=== PATIENT | male | born 1965 | race Caucasian/White ===

== ENCOUNTER 2018-04-02 21:22 | Emergency (ER) | payer OTHER ==
[2018-04-02] MEDS ORDERED: SODIUM CHLORIDE 0.9% 2,000 ML IV ONE (22:45)
--- NOTE | 2018-04-03 01:20 | ED ---
General Adult HPI - General Chief complaint: Recheck/Abnormal Lab/Rx Stated complaint: low blood pressure Time Seen by Provider: 04/02/18 22:12 Source: patient Mode of arrival: ambulatory Limitations: no limitations - History of Present Illness Initial comments: Patient is a 52-year-old male who presents with the chief complaint hypotension. Patient states that he is getting over a viral illness which she was diagnosed with last week. He states that at the time of evaluation last week he was hypotensive and presents today for the same. He states that he does not have any symptoms. He states he came in because checking his blood pressure at home he states it was low. On arrival he is normotensive without symptoms. - Related Data Home Medications Medication Instructions Recorded Confirmed Ascorbic Acid [Vitamin C] 500 mg PO DAILY 04/02/18 04/02/18 Aspirin EC [Ecotrin] 325 mg PO DAILY 04/02/18 04/02/18 Cholecalciferol [Vitamin D3] 1,000 unit PO DAILY 04/02/18 04/02/18 Omeprazole 20 mg PO DAILY 04/02/18 04/02/18 Vitamin E 100 unit PO DAILY 04/02/18 04/02/18 guaiFENesin [Mucinex] 600 mg PO DAILY 04/02/18 04/02/18 Allergies Allergy/AdvReac Type Severity Reaction Status Date / Time No Known Allergies Allergy Verified 04/02/18 22:02 Review of Systems ROS Statement: Those systems with pertinent positive or pertinent negative responses have been documented in the HPI. ROS Other: All systems not noted in ROS Statement are negative. Past Medical History Past Medical History: No Reported History Additional Past Medical History / Comment(s): kidney stones. glaucoma. spina bifida (2017). History of Any Multi-Drug Resistant Organisms: None Reported Past Surgical History: Hernia Repair, Orthopedic Surgery Additional Past Surgical History / Comment(s): valve replacement. ORIF right knee. kidney stones. Past Psychological History: No Psychological Hx Reported Smoking Status: Current every day smoker Past Alcohol Use History: None Reported Past Drug Use History: None Reported General Exam Limitations: no limitations General appearance: alert, in no apparent distress Head exam: Present: atraumatic, normocephalic, normal inspection Eye exam: Present: normal appearance, PERRL, EOMI. Absent: scleral icterus, conjunctival injection, periorbital swelling ENT exam: Present: normal exam, mucous membranes moist Neck exam: Present: normal inspection. Absent: tenderness, meningismus, lymphadenopathy Respiratory exam: Present: normal lung sounds bilaterally. Absent: respiratory distress, wheezes, rales, rhonchi, stridor Cardiovascular Exam: Present: regular rate, normal rhythm, normal heart sounds. Absent: systolic murmur, diastolic murmur, rubs, gallop, clicks GI/Abdominal exam: Present: soft, normal bowel sounds. Absent: distended, tenderness, guarding, rebound, rigid Rectal exam: Present: deferred Extremities exam: Present: normal inspection, full ROM, normal capillary refill. Absent: tenderness, pedal edema, joint swelling, calf tenderness Back exam: Present: normal inspection Neurological exam: Present: alert, oriented X3, CN II-XII intact Psychiatric exam: Present: normal affect, normal mood Skin exam: Present: warm, dry, intact, normal color. Absent: rash Course Vital Signs 04/02/18 04/02/18 04/02/18 21:43 22:08 22:10 Temperature 98.4 F Pulse Rate 97 87 Respiratory 16 20 18 Rate Blood Pressure 108/76 133/79 O2 Sat by Pulse 95 96 Oximetry Medical Decision Making - Medical Decision Making Patient presents with a chief complaint of hypotension. On initial evaluation, vitals are stable, patient is in no acute distress. He denies any symptomatology currently. Patient requesting IV hydration. He was given 2 L of IV fluid. Reevaluation, patient is stable for discharge. He was instructed to follow up with primary care in 1-2 days, return to the ED if symptoms worsen or change. Disposition Clinical Impression: Dehydration Disposition: HOME SELF-CARE Condition: Good Is patient prescribed a controlled substance at d/c from ED?: No Referrals: None,Stated [Primary Care Provider] - 1-2 days Luiz Dinero MD [STAFF PHYSICIAN] - 1-2 days
[2018-04-03 01:29] VITALS: BP 112/82; PULSE 67; RESP 19; TEMP 97.9
== END 2018-04-03 01:25 | disposition home or self-care (01) ==
LOC: EC 21:22
DX: E86.0 Dehydration (principal); F17.200 Nicotine dependence, unspecified, uncomplicated; Z79.82 Long term (current) use of aspirin; Z79.899 Other long term (current) drug therapy; Z95.2 Presence of prosthetic heart valve
CPT/HCPCS: 96360; 96361; 99284

== ENCOUNTER 2018-07-05 08:44 | Day surgery (SDC) | payer OTHER ==
[2018-07-02 10:32] VITALS: BMI 22.3
[~2018-07-05 08:44] MED LIST: LACTATED RINGERS 1,000 ML IV SCH; LIDOCAINE 1% 20 ML VIAL (10MG/ML) FOR IV START INTRADERMA PRN
[2018-07-05 09:08] VITALS: RESP 16; TEMP 98.4
[2018-07-05] MEDS ORDERED: LACTATED RINGERS 1,000 ML IV ONE (09:13)
[2018-07-05] MEDS ORDERED: PROPOFOL 10 MG/ML 20 ML VIAL IV ONE (09:22)
[2018-07-05] MEDS ORDERED: LIDOCAINE 1% INJ 10MG/ML (20 ML MDV) ONE (09:22)
--- NOTE | 2018-07-05 10:04 | P.PCN ---
Date of Procedure: 07/05/18 Procedure(s) Performed: Procedures: 1. Esophagogastroduodenoscopy and biopsy and esophageal dilation of a duodenal stricture using the Microvasive pyloric channel dilator size 10-12 mm. 2. Aborted colonoscopy because of extremely poor preparation. Preoperative diagnosis: Reflux symptoms and weight loss and change in bowel habits. Postoperative diagnosis : 1. Small hiatal hernia with no obvious esophagitis or complicated reflux disease. 2. Gastritis and post bulbar stricture with partial obstruction to the gastric outlet. 3. S/P dilation of postbulbar duodenal stricture using the Microvasive ezvlnya-pyh-avrlu balloon dilators size 10-12 mm. 4. Biopsies obtained from the antrum. 5. Colonoscopy aborted because of extremely poor preparation. Preparation: HalfLytely prep. Sedation: Was provided by anesthesia. Brief clinical history: The patient is a 53-year-old male who is scheduled for this evaluation because of reflux symptoms and post prandial discomfort, weight loss and change in bowel habits. The patient has lost around 12 pounds over the last 3 months. No prior upper endoscopy or colonoscopy. Procedure: With the patient on his left lateral decubitus position and after informed consent and adequate sedation, I passed the Olympus-GIF H 190L video upper endoscope through the cricopharyngeus down the esophagus. GE junction was around 36 cm from the incisors and there was a small sliding hiatal hernia but no obvious esophagitis or complicated reflux disease. The endoscope was then passed into the stomach which was insufflated with air and inspected in detail including the retroflex view in the cardia. There was mottling and erythema in the antrum consistent with antral gastritis but no ulcers. Pyloric channel did not show any ulcers. Duodenal bulb showed retained food and pills and there was duodenal stricture in the post bulbar area that would not allow the advancement of the endoscope. I, therefore, proceeded to dilate the stricture using the ulranqb-fqv-qzgfo Microvasive pyloric channel balloon dilators size 10-12 mm. It was inflated in a stepwise fashion up to 12 mm at which level I was able to pass the endoscope through the post bulbar area to the descending duodenum. The stricture appeared benign and there was no obvious abnormalities. I obtained biopsies from the antrum then the endoscope was withdrawn and I proceeded to perform the colonoscopy. Perianal area did not show any fissures or fistulas. There were no masses felt on digital rectal examination. The Olympus CFH 190L video colonoscope was then inserted in the rectum in the usual fashion, unfortunately, the preparation was extremely poor and I decided to abort the colonoscopy knowing that the patient would have opportunities to have reattempt at this in the future, perhaps part of a repeat upper endoscopy to reinspect his duodenum and possibly redilate his stricture. The patient tolerated the procedure well. Plan: The patient was reassured. Will keep on clear liquids today. I will see him in follow-up in the office and further plans will be made accordingly.
[2018-07-05 10:31] VITALS: BP 121/85; PULSE 86
== END 2018-07-05 10:51 | disposition home or self-care (01) ==
LOC: ORWHC2ENDO 08:44
DX: R19.4 Change in bowel habit (principal); K44.9 Diaphragmatic hernia without obstruction or gangrene; K31.5 Obstruction of duodenum; R63.4 Abnormal weight loss; Z68.22 Body mass index [BMI] 22.0-22.9, adult; K29.50 Unspecified chronic gastritis without bleeding; K21.9 Gastro-esophageal reflux disease without esophagitis; J44.9 Chronic obstructive pulmonary disease, unspecified; Z86.79 Personal history of other diseases of the circulatory system; Z87.442 Personal history of urinary calculi; Z79.82 Long term (current) use of aspirin; Z79.899 Other long term (current) drug therapy
CPT/HCPCS: 88305; 43239; 43245; 45330; J2001; J2704; C1727

== ENCOUNTER 2020-09-28 09:02 | Day surgery (SDC) | payer OTHER ==
[2020-09-26 16:19] VITALS: BMI 20.7
[~2020-09-28 09:02] MED LIST changes: +ALPRAZolam 0.25 MG TAB PO PRN; +ALPRAZolam 0.5 MG TAB PO PRN; +ASPIRIN 325 MG TAB PO STA; +ATORVASTATIN 80 MG TAB PO STA; -LACTATED RINGERS 1,000 ML IV SCH; -LIDOCAINE 1% 20 ML VIAL (10MG/ML) FOR IV START INTRADERMA PRN; +NITROGLYCERIN SL TABS 0.4 MG TAB SUBLINGUAL PRN; +SODIUM CHLORIDE 0.9% 1,000 ML in EMPTY BAG 1 BAG IV ONE
[2020-09-28 09:28] VITALS: RESP 18
[2020-09-28] MEDS ORDERED: fentaNYL (PF) 50 MCG/ML 2 ML AMP ONE (12:14)
[2020-09-28] MEDS: BENZOCAINE SPRAY 1 CAN MUCOUS MEM ONE ×2 (12:25→12:32)
[2020-09-28] MEDS ORDERED: IV FLUID CONTINUATION 1,000 ML IV ONE (12:25)
[2020-09-28] MEDS: fentaNYL (PF) 50 MCG/ML 2 ML AMP IVP ONE ×3 (12:28→12:34)
[2020-09-28] MEDS ORDERED: MIDAZOLAM 2 MG/2 ML VIAL IVP ONE (12:28)
[2020-09-28] MEDS: MIDAZOLAM 2 MG/2 ML VIAL IVP ONE ×2 (12:32→12:34)
[2020-09-28] MEDS ORDERED: HEPARIN SODIUM 1,000 UN/ML (10ML VL) ONE (12:37)
[2020-09-28] MEDS ORDERED: LIDOCAINE 1% INJ 10MG/ML (20 ML MDV) ONE (12:37)
[2020-09-28] MEDS ORDERED: VERAPAMIL 2.5 MG/ML 2 ML AMP ONE (12:37)
[2020-09-28] MEDS: LIDOCAINE 1% INJ 10MG/ML (20 ML MDV) SQ ONE ×3 (13:16→13:30)
[2020-09-28] MEDS ORDERED: VERAPAMIL SYRINGE (5 MG/10 ML) INTRAARTER ONE (13:21)
[2020-09-28 13:59] LABS: O2 Sat Blood Gas 92.2 %
[2020-09-28] MEDS ORDERED: IOPAMIDOL-370 125ML BTL INJ ONE (14:00)
[2020-09-28 14:14] LABS: O2 Sat Blood Gas 68.2 %
[2020-09-28 14:17] LABS: O2 Sat Blood Gas 69.5 %
[2020-09-28 23:03] VITALS: BP 135/87; PULSE 67; TEMP 98.8
--- NOTE | 2020-09-30 22:50 | P.TEE ---
Description of Procedure(s): Procedure performed: Transesophageal Echocardiogram with color flow doppler, pulsed wave doppler and continuous wave doppler, moderate conscious sedation Moderate conscious sedation: Moderate conscious sedation was supplied with direct supervision of myself using Versed and Fentanyl. Complications: none Indications: Cardiomyopathy, concern of VSD History: Patient is a pleasant 55-year-old male with history of congenital heart disease with unknown surgery at the age of 53 years old questionable valve replacement who was evaluated for preoperative clearance and was found to have new onset of cardiomyopathy with questionable VSD with turbulent flow in the RVOT. PROCEDURE: After the risks, benefits and alternatives of the above mentioned procedure was explained in detail with the patient, informed consent was obtained. Patient was brought to the lab in a fasting state. Patient was given IV Versed and Fentanyl for sedation. The throat was sprayed with Hurricane to anesthetize the throat. A lubricated Omni probe was then introduced into the esophagus and stomach and multiple views were obtained. 2D echo with color flow doppler, pulsed wave doppler and continuous wave doppler was utilized. Agitated saline bubbles were injected to assess for any intra-atrial shunt. The probe was then removed. Patient tolerated the procedure well. Patient was transferred to the post procedure area in stable and satisfactory condition. FINDINGS: 1. The aortic valve is tricuspid and functions normally. There is no aortic stenosis with mild aortic insufficiency. 2. The mitral valve appears be normal with mild regurgitation. 3. Tricuspid valve appears to be normal with mild tricuspid regurgitation. 4. 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 There is a PFO. 5. Left atrial appendage is free of clot. 6. Left ventricular size is mildly dilated. The LVEF is 40-45% with global hypokinesis. 7. 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
--- NOTE | 2020-09-30 23:06 | P.CARDCATH ---
Description of Procedure: PROCEDURES PERFORMED: Left heart catheterization, bilateral coronary angiography, left ventriculogram, right heart catheterization INDICATION: Cardiomyopathy, questionable VSD HISTORY: Patient is a pleasant 55-year-old male with history of congenital heart disease with unknown surgery at the age of 53 years old questionable valve re placement who was evaluated for preoperative clearance and was found to have new onset of cardiomyopathy with questionable VSD with turbulent flow in the RVOT. CONSENT:I have discussed the risks, benefits and alternative therapies for the above-mentioned procedure and for both sedation/analgesia as well as necessary blood product administration, if indicated, as they pertain to this patient. T he patient has indicated understanding and acceptance of the risks and procedures discussed. PROCEDURE: After the risks, benefits and alternatives of the above mentioned procedure explained in detail with the patient, informed consent was obtained. Patient was taken to the catheterization lab and prepped and draped in usual fashion. 1% lidocaine was used to anesthetize the right femoral area. A 6- Sammarinese sheath was placed in the right femoral vein using modified Seldinger technique and ultrasound guidance with micropuncture technique. Right heart catheterization was performed with a 6-Sammarinese Laporte-Lea catheter which was placed into the pulmonary A wedge position, pulmonary artery position, RV and RA position with pressure measurements and oxygen saturation drawn. The Laporte-Lea catheter was removed. 1% lidocaine was used to anesthetize the right radial artery. A 6-Sammarinese sheath was placed in the right radial artery using modified Seldinger technique. Left coronary angiography was performed with a 5-Sammarinese JL 3.5 catheter and right coronary angiography was performed with a 5-Sammarinese JR5 catheter in various views. A 5-Sammarinese pigtail catheter was inserted into the left ventricle and pressure measurements were obtained. Left ventriculography was performed in an SLOVENIAN cranial view to assess for VSD. The right radial sheath was removed and a TR band was placed with hemostasis achieved. The right femoral venous sheath was removed and pressure was held with hemostaisis achieved. The patient tolerated the procedure well. Patient was transported back to the post catheterization holding area in stable condition. Conscious Sedation: Patient was monitored under the direct supervision of vision of myself for conscious sedation using Versed and fentanyl for a total duration of 51 minutes HEMODYNAMICS: Pulmonary capillary wedge: 8 PA: 17/2 (8) RV: 24/0, RVEDP 1 RA: 4 Ao: 100/82 LV: 137/6, LVEDP 15mmHg RA oxygen saturation: 68% RV oxygen saturation 68% Right pulmonary artery oxygen saturation 69% Left pulmonary artery oxygen saturation: 70% Right radial artery oxygen saturation: 92% Cardiac output by Ryan: 4.71 L/m Cardiac index by Ryan: 2.91 L/m/m SELECTIVE CORONARY ARTERIOGRAPHY: LEFT MAIN: The left main is a large caliber vessel which bifurcates into the LAD and circumflex. There is no significant stenosis. LEFT ANTERIOR DESCENDING CORONARY ARTERY: LAD is a large caliber vessel which wraps around to the apex. There are mild luminal irregularities with robust left to right collaterals to the PDA. LEFT CIRCUMFLEX CORONARY ARTERY: Left circumflex is a moderate caliber vessel with mild luminal irregularities. RIGHT CORONARY ARTERY: The right coronary artery is a large caliber vessel which gives off a PDA and PLV branch and is the dominant vessel. There is proximal 100% RCA stenosis. LEFT VENTRICULOGRAPHY: Left ventricular ejection fraction is 40-45% with global hypokineisis. There is no significant mitral regurgitation and no significant gradient with pullback across the aortic valve. FINAL IMPRESSION: 1. CAD with 100% proximal RCA stenosis and diffuse left to right collaterals, otherwise only mild luminal irregularities. 2. Cardiomyopathy with EF 40-45% out of proportion to CAD 3. Normal left and right sided filling pressures PLAN: 1. Aggressive risk factor modification per most recent ACC/AHA guidelines. 2. Patient appears asymptomatic from his RCA [employer] and has diffuse collaterals and would continue to treat medically. Cardiomyopathy appears out of proportion to CAD and continue with heart failure regimen. Normal left and right sided filling pressures.
== END 2020-09-28 23:15 | disposition home or self-care (01) ==
LOC: CATHCVL 09:02 → 6NMEDSUR 14:05 → CATHCVL 23:15
PROVIDERS: ATTEND Internal Medicine
DX: I08.3 Combined rheumatic disorders of mitral, aortic and tricuspid valves (principal); I25.3 Aneurysm of heart; I42.9 Cardiomyopathy, unspecified; I25.10 Atherosclerotic heart disease of native coronary artery without angina pectoris; I25.82 Chronic total occlusion of coronary artery; Z72.0 Tobacco use; Z95.2 Presence of prosthetic heart valve; Z20.822 Contact with and (suspected) exposure to COVID-19; K21.9 Gastro-esophageal reflux disease without esophagitis; Z87.442 Personal history of urinary calculi; Z86.69 Personal history of other diseases of the nervous system and sense organs; Z79.899 Other long term (current) drug therapy
CPT/HCPCS: 93312; 93320; 93325; 93460; 85018; 82810; 87635; C1769 ×3; C1894 ×2; C1751; J2250; J2001; J3010; J1644; Q9967

== ENCOUNTER → 2023-07-22 | Outpatient (CLI) | payer OTHER ==
[2023-07-22 16:16] LABS: HCT 49.8 % (39.6-50.0); HGB 16.9 g/dL (13.0-17.0); MCH 31.8 pg (27.0-32.0); MCHC 33.9 g/dL (32.0-37.0); MCV 93.8 FL (80.0-97.0); Mean Platelet Volume 10.7 FL (9.5-12.2); NRBC Per 100 WBC 0 X 10*3/uL (0.00-0.01); Platelet Count 158 X 10*3/uL (140-440); RBC 5.31 X 10*6/uL (4.40-5.60); RDW 12.3 % (11.5-14.5); WBC 6.23 X 10*3/uL (4.50-10.00)
[2023-07-22 16:23] LABS: Chloride 107 mmol/L (96-109); Potassium 4.2 mmol/L (3.5-5.5); Sodium 142 mmol/L (135-145)
== END | disposition home or self-care (01) ==
LOC: LABPAT 10:06
PROVIDERS: ATTEND Internal Medicine Clinical Cardiac Electrophysiology
DX: Z01.812 Encounter for preprocedural laboratory examination (principal); I50.9 Heart failure, unspecified; I25.5 Ischemic cardiomyopathy
CPT/HCPCS: 36415; 80051; 82565; 84520; 85027

== ENCOUNTER 2023-08-03 15:37 | Day surgery (SDC) | payer OTHER ==
[2023-07-30 16:37] VITALS: BMI 26.1
[2023-08-03] MEDS: SODIUM CHLORIDE 0.9% 1,000 ML IV SCH (16:14)
[2023-08-03 16:39] LABS: ALT 14 U/L (4-49); AST 21 U/L (17-59); African American GFR (CKD) 61 (>60 ml/min/1.73 sqM); Albumin 4.5 g/dL (3.5-5.0); Alkaline Phosphatase 68 U/L (38-126); Anion Gap 10 mmol/L; Blood Urea Nitrogen 16 mg/dL (9-20); Calcium 9.8 mg/dL (8.4-10.2); Carbon Dioxide 19 mmol/L (22-30); Chloride 111 mmol/L (98-107); Glucose 86 mg/dL (74-99); Non-African American GFR(CKD) 52 (>60 ml/min/1.73 sqM); Potassium 4.3 mmol/L (3.5-5.1); Sodium 140 mmol/L (137-145); Total Bilirubin 1.2 mg/dL (0.2-1.3); Total Protein 6.9 g/dL (6.3-8.2)
[2023-08-03] MEDS ORDERED: ePHEDrine 50 MG/ML 1 ML VIAL ONE (17:39)
[2023-08-03] MEDS ORDERED: fentaNYL (PF) 50 MCG/ML 2 ML AMP ONE (17:39)
[2023-08-03] MEDS ORDERED: PROPOFOL 10 MG/ML 20 ML VIAL IV ONE (17:39)
[2023-08-03] MEDS ORDERED: MIDAZOLAM 2 MG/2 ML VIAL ONE (17:39)
[2023-08-03] MEDS: IOPAMIDOL-370 100ML BTL IVP ONE (17:54)
[2023-08-03] MEDS: LIDOCAINE 1% INJ 10MG/ML (20 ML MDV) SQ ONE (18:20)
[2023-08-03] MEDS: ceFAZolin 1 GM in SODIUM CHLORIDE 0.9% IRRIG BTL 250 ML IRRIGATION PRN (18:22)
[2023-08-03] MEDS ORDERED: ACETAMINOPHEN TAB 325 MG TAB PO PRN (19:12)
--- NOTE | 2023-08-03 19:12 | P.EPPROC ---
- EP Procedure Note Electrophysiology Procedure Note: Diagnosis Cardiomyopathy, chronic, ischemic Congestive heart failure, systolic class II On guideline directed medical treatment guideline directed greater than 3 months Narrow QRS, left ventricular ejection fraction less than 30% Procedure: Single ICD implantation for management of risk of sudden cardiac Nitriles Lab Technician: Dr. Lazar Result: Single chamber ICD implantation, RV ICD lead: Bell model single coil screw-in lead implanted in the low RV just above the apex R waves 12 mV, pacing threshold 0.25 V at point 5 ms and pacing impedance 640 ohms High-voltage impedance 71 ohms ICD generator: Bell Forrest, VR single-chamber device Procedure details: Patient was brought to the EP lab in a fasting state. Written informed consent was obtained prior to the procedure. Options, pros and cons, benefits and risks and complications discussed with patient in detail prior to the procedure (shared decision making document, from [facility]). Importance of continuing medical treatment emphasized. Alternatives discussed. Patient would like to proceed with ICD implant. Left upper extremity venogram performed. 15 mL IV dye injected in the left arm. Patent axillary/subclavian vein The left pectoral area was prepped and draped as a protocol. IV antibiotics administered 1% lidocaine was used for local anesthesia. A 4 cm incision was made parallel to the deltopectoral groove, about 1.5 cm medial to it. The incision was carried down to the level of the pectoralis muscle and the subfascial pocket was made. Hemostasis was assured. The axillary vein access was obtained. Appropriately sized venous sheath was placed. ICD lead implanted in the right ventricle and screwed in. ICD lead tested for threshold, sensing, impedances and tested with high output pacing for diaphragmatic stimulation Lead secured to the underlying transverse muscle after removing sheaths . Pocket irrigated with antibiotic solution Leads connected to the ICD generator. Wound closed in 3 layers and dressed per protocol ICD was interrogated and programmed. Appropriate pacing parameters, antitachycardia therapies with antitachycardia pacing cardioversion defibrillations programmed. Patient tolerated the procedure well without any acute complications. See scanned device report in EMR for lead details Defibrillation level testing Ventricular fibrillation induced and successfully detected at least sensitivity and successfully internally defibrillated with a 10 J shock. No post shock noise Charge time 1.6 seconds High-voltage impedance 71 ohms Device programmed according to MADIT RIT programming. Backup pacing VVI 40 beats a minute
[2023-08-04 03:20] VITALS: TEMP 98.4
[2023-08-04 08:11] VITALS: BP 101/70; PULSE 57; RESP 16
--- NOTE | 2023-08-04 09:03 | XR ---
EXAMINATION TYPE: XR chest 2V DATE OF EXAM: 08/04/2023 COMPARISON none HISTORY: 58-year-old male lead placement check TECHNIQUE: Frontal and lateral views FINDINGS: Left anterior chest wall AICD generator with right ventricular lead. No appreciable pneumothorax. Hea rt borderline in size. No consolidation or pleural effusion. Accentuated lower thoracic kyphosis. IMPRESSION: Left anterior chest wall AICD generator with single right ventricular lead. No appreciable pneumothor ax.
[2023-08-04] MEDS: DAPAGLIFLOZIN PROPANEDIOL 5 MG TABLET PO SCH (09:39)
[2023-08-04] MEDS: METOPROLOL SUCCINATE (ER) 25 MG TAB.ER.24H PO SCH (09:40)
[2023-08-04] MEDS: ATORVASTATIN 40 MG TAB PO SCH (09:40)
[2023-08-04] MEDS: LOSARTAN 25 MG TAB PO SCH (09:40)
[2023-08-04] MEDS: ASPIRIN 81 MG PO SCH (09:40)
--- NOTE | 2023-08-04 09:59 | P.DS ---
Providers Attending physician: John Lazar Primary care physician: Stated None Hospital Course: This is a 58-year-old male who underwent single ICD implantation for management of risk of sudden cardiac secondary to cardiomyopathy. Patient is doing well post procedure with no immediate complications noted. He denies chest pain or pressure. Denies shortness of breath. Vital signs are stable. He was deemed stable for discharge home today from a cardiac standpoint. Please see E MR for further hospital course details. Discharge diagnosis Cardiomyopathy, chronic, ischemic Congestive heart failure, systolic class II On guideline directed medical treatment guideline directed greater than 3 months Narrow QRS, left ventricular ejection fraction less than 30% Nurse practitioner note has been reviewed by physician. Signing provider agrees with the documented findings, assessment, and plan of care documented by PARKER as a scribe. Plan - Discharge Summary Discharge Rx Participant: No New Discharge Prescriptions: Continue Acetaminophen Tab [Tylenol] 1,000 mg PO Q6HR PRN PRN Reason: Pain Metoprolol Succinate (ER) [Toprol XL] 25 mg PO DAILY Aspirin EC [Ecotrin Low Dose] 81 mg PO DAILY Rosuvastatin [Crestor] 20 mg PO DAILY Latanoprost Ophth [Xalatan 0.005%] 1 drop BOTH EYES HS Losartan [Cozaar] 25 mg PO DAILY Empagliflozin [Jardiance] 10 mg PO DAILY Discharge Medication List Acetaminophen Tab [Tylenol] 1,000 mg PO Q6HR PRN 09/26/20 [History] Latanoprost Ophth [Xalatan 0.005%] 1 drop BOTH EYES HS 09/26/20 [History] Aspirin EC [Ecotrin Low Dose] 81 mg PO DAILY 07/30/23 [History] Empagliflozin [Jardiance] 10 mg PO DAILY 07/30/23 [History] Losartan [Cozaar] 25 mg PO DAILY 07/30/23 [History] Metoprolol Succinate (ER) [Toprol XL] 25 mg PO DAILY 07/30/23 [History] Rosuvastatin [Crestor] 20 mg PO DAILY 07/30/23 [History] Follow up Appointment(s)/Referral(s): Avinash Plummer MD [STAFF PHYSICIAN] - 08/26/23 3:45 pm (Appointment for the Device Clinic will be on August 10 @ 3:00pm) Activity/Diet/Wound Care/Special Instructions: PATIENT EDUCATION MATERIAL Instructions following a heart rhythm device implant. 1. Keep dressing DRY for 5 DAYS. You may cover the area with Saran or Cling Wrap, prior to a shower. 2. The dressing will be removed in the Device Clinic at [facility]. Absorbable sutures were used to close the wound. 3. Avoid raising the left arm above the shoulder level. 4 week restriction 4. Avoid arm movements, like backscratching, rubbing the head, or pulling on a cord. 4 weeks restriction 5. Gentle range of motion movements of the shoulder, closest to the incision should be performed to avoid a frozen shoulder. (Pendulum exercises of the shoulder) 6. The opposite arm may be used freely. 7. Avoid driving for 7 days. 8. Avoid activities such as golfing, swimming, weed whacking, lifting more than 10 pounds weight, bowling, gymnastics and weight training/lifting. (6 weeks restriction) 9. Activities such as wood chopping with an axe, pull-ups in the gymnasium, power lifting, arc-welding, being close to home induction cooktops will always be a problem. 10. Arm sling is only a reminder not to raise the arm above the head. You do not need to keep the arm completely immobilized. Your free to move the arm and use it and for normal activities. In case of any problems, please call [facility], Raquel Vilchis, @ [phone], Attention: Device Clinic Device clinic follow-up in 5 days Follow-up with primary doll dresser in 2-3 months Discharge Disposition: HOME SELF-CARE
== END 2023-08-04 11:59 | disposition home or self-care (01) ==
LOC: CATHEP 15:37 → 6NMEDSUR 18:51 → CATHEP 08-04 11:59
PROVIDERS: ATTEND Internal Medicine Clinical Cardiac Electrophysiology
DX: I42.9 Cardiomyopathy, unspecified (principal); I50.9 Heart failure, unspecified; I25.10 Atherosclerotic heart disease of native coronary artery without angina pectoris; Z79.82 Long term (current) use of aspirin; Z79.899 Other long term (current) drug therapy
CPT/HCPCS: 93641; 33249; 80053; 84443; 71046; C1722; C1892; C1769; C1777; J0690; J2001; Q9967

== ENCOUNTER → 2023-12-29 | Outpatient (CLI) | payer OTHER ==
[2023-12-29 15:36] LABS: HCT 49.3 % (39.6-50.0); HGB 16.5 g/dL (13.0-17.0); MCH 32.5 pg (27.0-32.0); MCHC 33.5 g/dL (32.0-37.0); MCV 97.2 FL (80.0-97.0); NRBC Per 100 WBC 0 X 10*3/uL (0.00-0.01); Platelet Count 141 X 10*3/uL (140-440); RBC 5.07 X 10*6/uL (4.40-5.60); RDW 12.6 % (11.5-14.5); WBC 6.42 X 10*3/uL (4.50-10.00)
[2023-12-29 18:13] LABS: NT-Pro-B-Type Natriuretic Pept 1430 pg/mL (0-125)
[2023-12-29 18:16] LABS: ALT 12 U/L (10-49); AST 16 U/L (14-35); Albumin 4.4 g/dL (3.8-4.9); Alkaline Phosphatase 72 U/L (41-126); BUN/Creat Ratio 12.43 Ratio (12.00-20.00); Blood Urea Nitrogen 17.4 mg/dL (9.0-27.0); Calcium 9.6 mg/dL (8.7-10.3); Carbon Dioxide 19.3 mmol/L (21.6-31.8); Chloride 108 mmol/L (96-109); Chol/HDL Ratio 2.38 Ratio; Glucose 103 mg/dL (70-110); LDL Cholesterol,Calculated 38.2 mg/dL (0.0-131.0); Potassium 4.3 mmol/L (3.5-5.5); Sodium 140 mmol/L (135-145); Total Bilirubin 0.8 mg/dL (0.3-1.2); Total Protein 6.4 g/dL (6.2-8.2); VLDL Calculation 18.66 mg/dL (5.00-40.00)
== END | disposition home or self-care (01) ==
LOC: LABWHC1 12:04
PROVIDERS: ATTEND Internal Medicine Interventional Cardiology
DX: E78.2 Mixed hyperlipidemia
CPT/HCPCS: 36415; 80053; 80061; 83880; 85027